=== PATIENT | male | born 1975 | race Caucasian/White ===

== ENCOUNTER → 2016-12-14 | Outpatient (CLI) | payer OTHER ==
--- NOTE | ~2016-12-14 | CR176 ---
[facility] A Service of [facility] RADIOLOGY TEXT RESULTS PATIENT: JASVIR FREIRE LOCATION: [facility] : 75 UNIT #: [id number] AGE: [address]: IDALIA ROBERTSON APRN SEX: M ORDER DR: [id number] [facility] [address] [place], [place] [address] [id number] O MR#: [id number] Acc #: [id number] NAME: JASVIR FREIRE : 1975 SEX: M STUDY DATE/TIME: 12/14/2016 11:52 UNIT: [facility] ROOM: STUDY DESCRIPTION: CR Knee Comp 4 + Views Rt Attending Physician: Idalia Robertson Np Referring Physician: Idalia Robertson Np Ordering Physician: Idalia Robertson Np Primary Care Physician: Idalia Robertson Np MEDICAL IMAGING REPORT This report is preliminary unless electronic signature is present EXAM Right knee 5 views 12/14/2016 HISTORY Right knee pain for 4 days with no known injury. FINDINGS AP and lateral projection of the knee shows smooth articular anatomy without indication of fracture or dislocation at the major weight-bearing surface of the knee. There is no indication of radiopaque foreign body about the knee surface or joint effusion. IMPRESSION Normal knee. Dictated by... Lawrence Walters M.D. THIS IS AN ELECTRONICALLY VERIFIED REPORT Lawrence Walters M.D. at 12/15/2016 3:05 PM ALFRED/sil TD: 12/15/2016 00:40 JOB #: [id number] MEDICAL IMAGING REPORT Page 1 of 1 COPY
== END | disposition home or self-care (01) ==
LOC: CRAD 11:31
DX: S89.91XA Unspecified injury of right lower leg, initial encounter (principal)
CPT/HCPCS: 73564